=== PATIENT | male | born 1965 | race Caucasian/White ===

== ENCOUNTER 2019-11-18 00:47 | Inpatient (IN) | payer MEDICAID, OTHER ==
--- NOTE | 2019-11-18 02:01 | ED ---
Psych HPI - General Source: patient, police Mode of arrival: ambulatory <Sadie Ramirez - Last Filed: 11/18/19 08:20> <Silver Mcknight - Last Filed: 11/18/19 14:58> - General Chief Complaint: Psychiatric Symptoms Stated Complaint: petition Time Seen by Provider: 11/18/19 01:05 - History of Present Illness Initial Comments: Rides a 54-year-old gentleman is brought to the ER today by police for psychiatric evaluation. Patient was petitioned by his for delusional thinking. In addition patient's on expresses concern because he reports the patient's currently living in the home has no electricity or water. Patient reports that he is living in a farmhouse he has a generator he currently doesn't have sit electric due to a unpaid bill. He states that he has a well and he is able to pump water. He states that he is currently going through divorce from his of 33 years and that she had an petitioned to be vindictive and so that she can get into the house and take belongings. He denies any suicidal or homicidal thoughts. Denies any intent to kill himself. He does admit that he is lonely at the house living alone and does state that sometimes he tells his son that he needs to come home to take care of him. Patient does have a well-healing laceration to the right wrist which he reports he obtained while removing a window. He didn't seek care at the time of the laceration had sutures at [facility]. When we advised the patient that we had to take blood he became combative stating that he didn't want us to take blood he does not want blood test for drugs. 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 Patient reports he turned him in the place and he has been arrested. Patient states that he only uses drugs as he was working undercover. (Sadie Ramirez) - Related Data Home Medications Medication Instructions Recorded Confirmed No Known Home Medications 11/18/19 11/18/19 Allergies Allergy/AdvReac Type Severity Reaction Status Date / Time No Known Allergies Allergy Verified 11/18/19 08:07 Review of Systems ROS Other: All systems not noted in ROS Statement are negative. <Sadie Ramirez - Last Filed: 11/18/19 08:20> ROS Other: All systems not noted in ROS Statement are negative. <Silver Mcknight - Last Filed: 11/18/19 14:58> ROS Statement: Those systems with pertinent positive or pertinent negative responses have been documented in the HPI. Past Medical History Past Medical History: No Reported History History of Any Multi-Drug Resistant Organisms: None Reported Past Surgical History: No Surgical Hx Reported Additional Past Surgical History / Comment(s): 2012 colon resection surgery Past Psychological History: No Psychological Hx Reported Smoking Status: Current some day smoker Past Alcohol Use History: None Reported Past Drug Use History: None Reported <Sadie Ramirez - Last Filed: 11/18/19 08:20> General Exam Limitations: no limitations <Sadie Ramirez - Last Filed: 11/18/19 08:20> - General Exam Comments Initial Comments: Physical Exam GENERAL: Unkempt appearance, poor personal hygiene HENT: Normocephalic, Atraumatic. EYES: PERRL, EOMI PULMONARY: Unlabored respirations. CARDIOVASCULAR: RRR Warm and well perfused extremities ABDOMEN: Non-distended SKIN: Well-healing sutured laceration on the anterior surface of the right wrist : Deferred NEUROLOGIC: Alert and oriented Normal speech Normal gait MUSCULOSKELETAL: Moving all extremities with no apparent injury PSYCHIATRIC: No SI/HI (Sadie Ramirez) Course Vital Signs 11/18/19 11/18/19 11/18/19 00:58 07:00 08:00 Temperature 97.8 F 97.8 F Pulse Rate 84 85 Respiratory 16 18 18 Rate Blood Pressure 130/100 110/70 O2 Sat by Pulse 98 96 Oximetry 11/18/19 11/18/19 11/18/19 09:00 10:00 11:00 Temperature 97.6 F Pulse Rate 75 Respiratory 18 18 18 Rate Blood Pressure 138/80 O2 Sat by Pulse 98 Oximetry 11/18/19 11/18/19 12:00 13:00 Temperature Pulse Rate Respiratory 18 18 Rate Blood Pressure O2 Sat by Pulse Oximetry Medical Decision Making - Lab Data Result diagrams: 11/18/19 02:41 11/18/19 02:41 <Sadie Ramirez - Last Filed: 11/18/19 08:20> - Lab Data Result diagrams: 11/18/19 02:41 11/18/19 02:41 <Silver Mcknight - Last Filed: 11/18/19 14:58> - Medical Decision Making The patient was seen and evaluated history is obtained from patient and review of pick remover order The patient is medically cleared for evaluation by psychiatry Patient care is signed out to Dr. Mcknight who will follow-up on EPS recommendations (Sadie Ramirez) - Lab Data Lab Results 11/18/19 11/18/19 11/18/19 Range/Units 02:41 02:41 02:41 WBC 10.8 H (3.8-10.6) k/uL RBC 5.10 (4.30-5.90) m/uL Hgb 15.1 (13.0-17.5) gm/dL Hct 46.2 (39.0-53.0) % MCV 90.5 (80.0-100.0) fL MCH 29.5 (25.0-35.0) pg MCHC 32.6 (31.0-37.0) g/dL RDW 13.4 (11.5-15.5) % Plt Count 231 (150-450) k/uL Neutrophils % 66 % Lymphocytes % 21 % Monocytes % 7 % Eosinophils % 3 % Basophils % 1 % Neutrophils # 7.1 (1.3-7.7) k/uL Lymphocytes # 2.3 (1.0-4.8) k/uL Monocytes # 0.8 (0-1.0) k/uL Eosinophils # 0.3 (0-0.7) k/uL Basophils # 0.1 (0-0.2) k/uL Sodium 135 L (137-145) mmol/L Potassium 4.0 (3.5-5.1) mmol/L Chloride 103 (98-107) mmol/L Carbon Dioxide 24 (22-30) mmol/L Anion Gap 8 mmol/L BUN 19 (9-20) mg/dL Creatinine 0.72 (0.66-1.25) mg/dL Est GFR (CKD-EPI)AfAm >90 (>60 ml/min/1.73 sqM) Est GFR (CKD-EPI)NonAf >90 (>60 ml/min/1.73 sqM) Glucose 101 H (74-99) mg/dL Calcium 9.4 (8.4-10.2) mg/dL Total Bilirubin 0.8 (0.2-1.3) mg/dL AST 29 (17-59) U/L ALT 16 (4-49) U/L Alkaline Phosphatase 87 (38-126) U/L Total Protein 6.7 (6.3-8.2) g/dL Albumin 4.2 (3.5-5.0) g/dL Urine Color Yellow Urine Appearance Clear (Clear) Urine pH 6.0 (5.0-8.0) Ur Specific [place] 1.028 (1.001-1.035) Urine Protein Trace H (Negative) Urine Glucose (UA) Negative (Negative) Urine Ketones 1+ H (Negative) Urine Blood Negative (Negative) Urine Nitrite Negative (Negative) Urine Bilirubin Negative (Negative) Urine Urobilinogen 3.0 (<2.0) mg/dL Ur Leukocyte Esterase Small H (Negative) Urine RBC 1 (0-5) /hpf Urine WBC 5 (0-5) /hpf Ur Squamous Epith Cells <1 (0-4) /hpf Urine Mucus Many H (None) /hpf Salicylates <1.0 mg/dL Urine Opiates Screen Not Detected (NotDetected) Ur Oxycodone Screen Not Detected (NotDetected) Urine Methadone Screen Not Detected (NotDetected) Ur Propoxyphene Screen Not Detected (NotDetected) Acetaminophen <10.0 ug/mL Ur Barbiturates Screen Not Detected (NotDetected) U Tricyclic Antidepress Not Detected (NotDetected) Ur Phencyclidine Scrn Not Detected (NotDetected) Ur Amphetamines Screen Detected H (NotDetected) U Methamphetamines Scrn Detected H (NotDetected) U Benzodiazepines Scrn Not Detected (NotDetected) Urine Cocaine Screen Detected H (NotDetected) U Marijuana (THC) Screen Detected H (NotDetected) Serum Alcohol <10 mg/dL Disposition <Sadie Ramirez - Last Filed: 11/18/19 08:20> Time of Disposition: 14:58 <Silver Mcknight - Last Filed: 11/18/19 14:58> Clinical Impression: Psychosis Disposition: TRANSFER TO PSYCH HOSP/UNIT Referrals: None,Stated [Primary Care Provider] - 1-2 days
[2019-11-18 02:50] LABS: Basophils # (A) 0.1 k/uL (0-0.2); Basophils % (A) 1 %; Eosinophils # (A) 0.3 k/uL (0-0.7); Eosinophils % (A) 3 %; HCT 46.2 % (39.0-53.0); HGB 15.1 gm/dL (13.0-17.5); Lymphocytes # (A) 2.3 k/uL (1.0-4.8); Lymphocytes % (A) 21 %; MCH 29.5 pg (25.0-35.0); MCHC 32.6 g/dL (31.0-37.0); MCV 90.5 fL (80.0-100.0); Mean Platelet Volume 8.8; Monocytes # (A) 0.8 k/uL (0-1.0); Monocytes % (A) 7 %; Neutrophils # (A) 7.1 k/uL (1.3-7.7); Neutrophils % (A) 66 %; Platelet Count 231 k/uL (150-450); RDW 13.4 % (11.5-15.5); WBC 10.8 k/uL (3.8-10.6)
[2019-11-18 02:52] LABS: Appearance,Urine Clear (Clear); Bilirubin,Urine Negative (Negative); Blood,Urine Negative (Negative); Color,Urine Yellow; Glucose,Urine (UA) Negative (Negative); Ketones,Urine 1+ (Negative); Leukocyte Esterase,Urine Small (Negative); Mucus,Urine Many /hpf; Nitrite,Urine Negative (Negative); Protein,Urine Trace (Negative); RBC,Urine 1 /hpf (0-5); Specific Gravity,Urine 1.028 (1.001-1.035); Squamous Epithelial Cell,Urine <1 /hpf (0-4); WBC,Urine 5 /hpf (0-5)
[2019-11-18 02:58] LABS: ALT 16 U/L (4-49); AST 29 U/L (17-59); Acetaminophen <10.0 ug/mL; African American GFR (CKD) >90 (>60 ml/min/1.73 sqM); Albumin 4.2 g/dL (3.5-5.0); Alcohol <10 mg/dL; Alkaline Phosphatase 87 U/L (38-126); Anion Gap 8 mmol/L; Blood Urea Nitrogen 19 mg/dL (9-20); Calcium 9.4 mg/dL (8.4-10.2); Carbon Dioxide 24 mmol/L (22-30); Chloride 103 mmol/L (98-107); Glucose 101 mg/dL (74-99); Non-African American GFR(CKD) >90 (>60 ml/min/1.73 sqM); Salicylate <1.0 mg/dL; Sodium 135 mmol/L (137-145); Total Bilirubin 0.8 mg/dL (0.2-1.3); Total Protein 6.7 g/dL (6.3-8.2)
[2019-11-18 02:59] LABS: Amphetamine Screen,Urine Detected (NotDetected); Barbiturate Screen,Urine Not Detected (NotDetected); Benzodiazepines Screen,Urine Not Detected (NotDetected); Cocaine Screen,Urine Detected (NotDetected); Methadone Screen, Urine Not Detected (NotDetected); Opiate Screen,Urine Not Detected (NotDetected); Oxycodone Screen, Urine Not Detected (NotDetected); Phencyclidine Screen,Urine Not Detected (NotDetected); Tricyclic Antidepressant,Urine Not Detected (NotDetected); Urn Cannabinoid Scrn Detected (NotDetected)
[2019-11-18] MEDS ORDERED: LORazepam 2 MG/ML INJ IM STA (16:43)
[2019-11-18] MEDS ORDERED: ZIPRASIDONE 20 MG VIAL IM PRN (16:57)
[2019-11-18] MEDS ORDERED: MAG HYDROX/AL HYDROX/SIMETH 30 ML CUP PO PRN (16:57)
[2019-11-18] MEDS ORDERED: MAGNESIUM HYDROXIDE 2,400 MG/10 ML CUP PO PRN (16:57)
[2019-11-18] MEDS ORDERED: ACETAMINOPHEN TAB 325 MG TAB PO PRN (16:57)
[2019-11-18] MEDS ORDERED: LORazepam 1 MG TAB PO PRN (16:57)
[2019-11-18] MEDS ORDERED: LORazepam 2 MG/ML INJ IM PRN (17:06)
[2019-11-18] MEDS ORDERED: ZIPRASIDONE 20 MG VIAL IM STA (17:07)
[2019-11-18] MEDS: NICOTINE 14MG/24HR PATCH TRANSDERM SCH (20:03)
[2019-11-18] MEDS ORDERED: HALOPERIDOL LACTATE 5 MG/ML 1 ML VIAL IM STA (22:57)
[2019-11-19] MEDS: NICOTINE 14MG/24HR PATCH TRANSDERM SCH (11:36)
--- NOTE | 2019-11-19 14:14 | HP ---
HISTORY AND PHYSICAL DATE OF ADMISSION: 11/18/2019 DATE OF EVALUATION: 11/19/2019 . HISTORY OF PRESENT ILLNESS: The patient is 54, male who is currently from his of 33 years, was brought to the emergency room by the police on court order. The patient was petitioned by his for delusional thinking. According to the petition, she stated that the patient told her that there is a demon coming in the window to steal his body. In addition, he stated that there are faces in the tree. She stated that he does not have electricity or water or food in the house. The patient was severely agitated. He denied any of this allegation. He stated that the one who was seeing demon in the window it was her uncle who was in the psych unit. Also, he denied that he did cut his wrist. He stated "I was fixing the window last week and the glass slashed my wrist , did not slit my wrist, she is lying." Patient kept asking me "HOW CAN I GET OUT OF THIS PLACE" He stated that he does not belong to "THIS NUT HOUSE". He kept saying that I have electricity because I have a generator. According to him, he is currently going through a divorce from his of 33 years and she did petition him to be vindictive so she can go back to the house and take all the belongings. The patient was very grandiose, he kept telling me "I am a very rich man. I have a limousine and have Corvette and she want to steal all this" Then he was very bizarre when I did ask him if he was using methamphetamine. He said "She is the one who is addicted to methamphetamine, but I was trying to go around the people that she associated with and I did use with them, so I could report them to the police." The patient was severely agitated and combative in the emergency room, especially when they did ask him to do blood work up. This morning he was severely agitated and he was asking to be discharged. He said "I will not stay in this place more than 72 hours." He stated that he will not take any psychotropic medication and he does not want any injection. Last night patient received IM 5 mg Haldol and 2 mg Ativan due to agitation PAST PSYCHIATRIC HISTORY: He denied inpatient or outpatient treatment. FAMILY HISTORY OF ILLNESS: He stated that his mother was addicted to opiate and benzodiazepine. No one committed suicide in the family. ALLERGIES: There is no drug allergies. HOME MEDICATION: There is no known home medication. PAST MEDICAL HISTORY: There is history in 2011 of colon resection surgery. This is according to the record, but the patient refused to answer this. LAB WORKUP: His urine drug screen was positive for cocaine, methamphetamine, amphetamine and marijuana. Urinalysis, there is small amount of leukocyte esterase. Vital signs: Temperature 97.6, pulse 75, respiration 18, blood pressure 138/80. SUBSTANCE ABUSE HISTORY: 1. Patient was very vague, guarded and very defensive regarding his substance abuse history. He stated that he is using methamphetamine and amphetamine. However, he denied using cocaine. He said "most probably someone just mixed it with my methamphetamine. ". 2. Cannabis. He has been smoking marijuana on a regular basis. The patient denied any rehab program. BRIEF SOCIAL HISTORY: The patient was born and raised in [place], he dropped out of school at 10th grade. He stated "I did not like school and I supposed to work because my family was not rich." He has been for 33 years and he has 2 sons, age 28 and 22. He said he is very close to the oldest one. The patient stated that he has 4 sisters and 3 brothers. 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 He denied any current legal problem and he is not on probation. MENTAL STATUS EXAMINATION: Patient appears to be much older than stated age. He is very agitated, irritable, wearing hospital gown. Hygiene and grooming are impaired. The patient could not sit for long periods of time as he gets severely agitated as he was reading the petition filed by his . His speech was increased in productivity, pressured. There is loose of association. His stated mood "I am angry and frustrated because I want to leave right now." Affect is irritable. He denied any suicidal, homicidal ideation, intent, or plan. He denied any auditory hallucination, but it seems that he is very paranoid, suspicious and projecting everything on his . Regarding memory and concentration, I could not pursue this as the patient was severely agitated and he was not cooperative during the interview. His insight and judgment are totally impaired. INTELLECTUAL FUNCTION: Average. STRENGTHS AND WEAKNESSES: Strengths: He is having stable job, housing and supportive children. WEAKNESS: His drug addiction and poor judgment and impulsivity. DIAGNOSES: 1. Psychosis, NOS. Methamphetamine use disorder, substance induced psychosis. 2. Polysubstance use disorder, cocaine, methamphetamine and cannabis use disorder. PLAN: The patient was admitted under involuntary status for stabilization of his psychiatric symptoms and safety. His second certificate was completed and it will be filed with the petition for the court. The patient will be on p.r.n. medication for agitation until the probate court hearing. The patient will participate in group therapy. Activity therapy as tolerated. Our geriatric social worker on board for collateral information from his and for post plan discharge. MMODL / IJN: [id number] / MTDD
--- NOTE | 2019-11-19 22:13 | P.PN ---
Progress Note - Text Progress Note Date: 11/19/19 Attempted to see the patient in the mental health unit. The patient refused to answer questions or be examined. Will attempt tomorrow.
--- NOTE | 2019-11-20 08:46 | P.PN ---
Progress Note - Text Progress Note Date: 11/20/19 Attempted to see the patient again on 11/19. The patient refused to talk, answer any questions, or be seen.
--- NOTE | 2019-11-20 09:27 | P.PN ---
Progress Note - Text Progress Note Date: 11/20/19 Clinical Problems: Psychosis NOS , polysubstance use disorder ,substance induced psychosis Patient refused to see medical doctor yesterday and today Slept 5 hours ,no participation in groups ,withdrawn ,poor ADL TODAY VITALS:Temp:98.7,P:72,R:18,BP:122/70 Interim history: I reviewed the medical record and attempted to interview the patient. He refused to get out of bed for the interview. He would not answer questions and did not volunteer information. He kept requesting to be discharged"I do not belong here ,I am missing my son " He avoids social contact, does not participate in therapeutic groups and activities and seldom interacts with staff or peers. Mental status exam: He presented as a disheveled male who is laying in bed. He would not make eye contact. His speech was non spontaneous but coherent ,irritable , He appeared guarded and suspicious. He did not appear to be responding to internal stimuli.His insight and judgment are limited Plan: Continue inpatient. Probate hearing pending. Ativan 1 mg by mouth 3 times a day when necessary for agitation or anxiety and Geodon 20 mg IM twice a day for agitation acute psychosis. Encourage participation in therapeutic groups and activities. Evaluate clinical status and response to treatment daily basis.
[2019-11-20] MEDS: NICOTINE 14MG/24HR PATCH TRANSDERM SCH (09:36)
--- NOTE | 2019-11-20 16:55 | P.HPIM ---
History of Present Illness H&P Date: 11/20/19 Chief Complaint: acute psychosis this is a 54-year-old male who presents to the emergency department accompanied seen by police for psychiatric evaluation. Patient was petitioned by his secondary to delusional thinking. Patient states that his is trying to take away all his money and things. Patient is also concerned about his right wrist laceration with stasis. Patient has had stitches there for the past 12 days. They are due to come out. Patient states he injured himself when he broke a window. patient denies chest pain, shortness of breath, nausea, vomiting, fever, or chills Review of Systems a 14 point review of systems was assessed patient was only positive for those pertinent HPI Past Medical History Past Medical History: No Reported History History of Any Multi-Drug Resistant Organisms: None Reported Past Surgical History: No Surgical Hx Reported Additional Past Surgical History / Comment(s): 2011 colon resection surgery Past Psychological History: No Psychological Hx Reported Smoking Status: Current some day smoker Past Alcohol Use History: None Reported Past Drug Use History: None Reported Medications and Allergies Home Medications Medication Instructions Recorded Confirmed Type No Known Home Medications 11/18/19 11/18/19 History Allergies Allergy/AdvReac Type Severity Reaction Status Date / Time No Known Allergies Allergy Verified 11/18/19 08:07 Physical Exam Osteopathic Statement: *. No significant issues noted on an osteopathic structural exam other than those noted in the History and Physical/Consult. General: [non toxic], [no distress], [appears at stated age] Derm: [warm], [dry] Head: [atraumatic], [normocephalic], [symmetric] Eyes: [EOMI], [no lid lag], [anicteric sclera] Mouth: [no lip lesion], [mucus membranes moist] Cardiovascular: [S1S2 reg], [no murmur], [positive posterior tibial pulse bilateral], Lungs: [CTA bilateral], [no rhonchi, no rales] , [no accessory muscle use] Abdominal: [soft], [ nontender to palpation], [no guarding], [no appreciable organomegaly] Ext: [no gross muscle atrophy], [no edema], [no contractures]right wrist laceration healing with stitches with increased erythema and edema around stitches Neuro: [ CN II-XI grossly intact], [no focal neuro deficits] Psych: [Alert], [oriented], [appropriate affect] Results CBC & Chem 7: 11/18/19 02:41 11/18/19 02:41 Assessment and Plan Assessment: 1. Right wrist laceration with stitches -Nursing staff advised to remove the stitches -Bactrim prescribed for possible cellulitis 2. Acute psychosis Psychiatry recommendations appreciated Time with Patient: Greater than 30
[2019-11-20] MEDS: SULFAMETHOX-TMP 800-160MG 1 EACH TAB PO SCH (21:13)
[2019-11-21 03:32] VITALS: BP 113/71; PULSE 83; RESP 16; TEMP 97.9
[2019-11-21] MEDS: NICOTINE 14MG/24HR PATCH TRANSDERM SCH (09:42)
[2019-11-21] MEDS: SULFAMETHOX-TMP 800-160MG 1 EACH TAB PO SCH (09:43)
[2019-11-21] MEDS ORDERED: DOXYCYCLINE 100 MG CAP PO SCH (10:30)
[2019-11-21 13:00] VITALS: BMI 23.7
[2019-11-21] MEDS ORDERED: CEPHALEXIN 500 MG CAP PO SCH (16:00)
--- NOTE | 2019-11-21 20:43 | DS ---
DISCHARGE SUMMARY DATE OF ADMISSION: 11/18/2019 DATE OF DISCHARGE: 11/21/2019 HOSPICE RN: [place] D.O., for H&P and medical management. DISCHARGE DIAGNOSES: 1. Substance-induced psychosis, resolved. 2. Methamphetamine use disorder. 3. Cocaine use disorder. HISTORY OF PRESENT ILLNESS: The patient is a 54-year-old male who was brought to the emergency room by the police on court order. He was petitioned by his for delusional thinking. His urine drug screen was positive for methamphetamine, amphetamine and cocaine. Please refer to my complete history and physical dictated on November 18. HOSPITAL COURSE: The first day, patient was very agitated and irritable, stated that his petitioned him here so she could take all his money. He even refused H&P. However, after 24 hours the patient calmed down and was able to understand that he was here until he would meet with an assistant prosecuting attorney for deferral meeting. He was just on p.r.n. medication until he was cleared within 24 hours. The patient was not participating in any group. However, he was trying to call his son to check on his house and his belongings. Initially he was minimizing his addiction and drug use, but after one day his insight into his addiction was improving and he did agree to start inpatient substance abuse. He even called for intake and we did confirm that he has an appointment at [facility] on November 24 at 12:00. Our clinical social work aide did contact the patient's son, Pelon, who stated that he does believe that his dad does not need any mental health, but he believes that his dad needs rehab for the cocaine and methamphetamine use. His son Pelon did agree to cook pickled meat his dad after the deferral meeting today. Regarding his labs, the only abnormality was his urinalysis that was positive for leukocyte esterase, and that is why he was started on antibiotic to continue for another 7 days. MENTAL STATUS EXAMINATION: At the time of the discharge, the patient was wearing a hospital gown, not shaved. He had marginal hygiene and grooming. He was cooperative, very easy to redirect. Speech was coherent and goal-directed. He denied any psychotic feature. He denied any visual or auditory hallucination. He denied any suicidal or homicidal ideation. His insight and judgment regarding his addiction was improved. DISCHARGE DIAGNOSES: 1. Polysubstance use disorder, cocaine and methamphetamine. 2. Substance-induced psychosis, resolved. PLAN: The patient was discharged to start inpatient rehab on November 24 for his cocaine and methamphetamine. [id number] / IJN: [id number] /
== END 2019-11-21 15:04 | disposition home or self-care (01) | DRG 897 ==
LOC: EC 00:47 → 3MHU 16:47
PROVIDERS: ADMIT Psychiatry & Neurology Psychiatry; ATTEND Psychiatry & Neurology Psychiatry
DX: F15.259 Other stimulant dependence with stimulant-induced psychotic disorder, unspecified (principal); F14.159 Cocaine abuse with cocaine-induced psychotic disorder, unspecified; F12.10 Cannabis abuse, uncomplicated; S61.511D Laceration without foreign body of right wrist, subsequent encounter; F17.200 Nicotine dependence, unspecified, uncomplicated; Z71.6 Tobacco abuse counseling; Z90.49 Acquired absence of other specified parts of digestive tract; Z87.19 Personal history of other diseases of the digestive system; Z98.890 Other specified postprocedural states; Z81.4 Family history of other substance abuse and dependence
CPT/HCPCS: 36415; 80053; 80306; 80320; 80329; 81001; 82075; 83520; 85025; 96372; 99285

== ENCOUNTER 2019-12-11 21:56 | Inpatient (IN) | payer MEDICAID, OTHER ==
[2019-12-11] MEDS ORDERED: LORazepam 2 MG/ML INJ IV STA (23:17)
[2019-12-11] MEDS ORDERED: LORazepam 2 MG/ML INJ IM STA (23:21)
--- NOTE | 2019-12-12 00:02 | ED ---
Psych HPI - General Chief Complaint: Psychiatric Symptoms Stated Complaint: mental health Time Seen by Provider: 12/11/19 22:16 Source: patient, EMS Mode of arrival: ambulatory - History of Present Illness Initial Comments: Patient is a 54-year-old male presenting to the emergency department for psychiatric evaluation. Police state patient was picked up on petition order for not complying with his treatment through [facility]. Patient denies any suicidal thoughts at this time. supervisory cbp officer states during transfer to ER, patient was banging his head against the cage resulting in a small laceration on his forehead. He is very agitated and not cooperative at this time. He is not answering many questions. He denies having pain anywhere. He denies any nausea or vomiting, fevers. He denies any drug use at this time. Upon arrival to the ER his vitals are stable. - Related Data Home Medications Medication Instructions Recorded Confirmed No Known Home Medications 12/11/19 12/11/19 Allergies Allergy/AdvReac Type Severity Reaction Status Date / Time Sulfa (Sulfonamide AdvReac Rash/Hives Verified 12/11/19 22:50 Antibiotics) Review of Systems ROS Statement: Those systems with pertinent positive or pertinent negative responses have been documented in the HPI. ROS Other: All systems not noted in ROS Statement are negative. Past Medical History Past Medical History: No Reported History History of Any Multi-Drug Resistant Organisms: None Reported Past Surgical History: No Surgical Hx Reported Additional Past Surgical History / Comment(s): 2012 colon resection surgery Past Psychological History: No Psychological Hx Reported Smoking Status: Current some day smoker Past Alcohol Use History: None Reported Past Drug Use History: None Reported General Exam - General Exam Comments Initial Comments: GENERAL: Patient is agitated, not cooperative, not in acute distress. HEAD: Normocephalic. Patient has small laceration to middle forehead. EYES: Pupils equal round and reactive to light, extraocular movements intact, sclera anicteric, conjunctiva are normal. Eyelids were unremarkable. ENT: TMs normal, nares patent, oropharynx clear without exudates. Moist mucous membranes. NECK: Normal range of motion, supple without lymphadenopathy or JVD. LUNGS: Unlabored respirations. Breath sounds clear to auscultation bilaterally and equal. No wheezes rales or rhonchi. HEART: Regular rate and rhythm without murmurs, rubs or gallops. ABDOMEN: Soft, nontender, normoactive bowel sounds. No guarding, no rebound. No masses appreciated. : Deferred MUSCULOSKELETAL: Normal extremities with adequate strength and normal range of motion, no pitting or edema. No clubbing or cyanosis. NEUROLOGICAL: Patient is alert and oriented x 3. Motor and sensory are also intact. Cranial nerves II through XII grossly intact. Symmetrical smile. Normal speech, normal gait. PSYCH: Patient is agitated, not cooperative. SKIN: Warm, Dry, normal turgor, no rashes. Patient has a 1 cm horizontal laceration to the middle of the forehead. There is no active bleeding. Patient is refusing sutures. Limitations: no limitations Course Vital Signs 12/11/19 12/12/19 12/12/19 22:03 04:10 05:36 Temperature 98.8 F Pulse Rate 59 L 75 65 Respiratory 20 16 16 Rate Blood Pressure 159/86 90/58 98/56 O2 Sat by Pulse 96 96 97 Oximetry 12/12/19 07:00 Temperature Pulse Rate 62 Respiratory 16 Rate Blood Pressure 92/62 O2 Sat by Pulse 98 Oximetry Procedures - Laceration Laceration #1 Consent Obtained: verbal consent Indication: laceration Site: face (Forehead) Size (cm): 1 Description: linear Depth: simple, single layer Additional Comments: Patient refuses sutures, wound was cleaned, closed with Steri-Strips and a bandage. No active bleeding. Wound approximates well. Medical Decision Making - Medical Decision Making Patient is a 54-year-old male here for a gastric evaluation after failing to comply with this treatment plan. He denies any suicidal or homicidal thoughts at this time. Patient was hitting his head on the police car cage resulting in a 1 cm laceration to the middle of his forehead. Patient is refusing sutures. I did clean the wound, closed with Steri-Strips and a bandage. Patient was e valuated by psych. Patient will be admitted. Disposition Clinical Impression: Suicidal ideation Disposition: ADMITTED IP TO THIS HOSP
[2019-12-12] MEDS ORDERED: ZIPRASIDONE 20 MG VIAL IM STA (03:24)
[2019-12-12] MEDS ORDERED: LORazepam 2 MG/ML INJ IM STA (04:12)
[2019-12-12] MEDS ORDERED: ACETAMINOPHEN TAB 325 MG TAB PO PRN (07:26)
[2019-12-12] MEDS ORDERED: MAG HYDROX/AL HYDROX/SIMETH 30 ML CUP PO PRN (07:26)
[2019-12-12] MEDS ORDERED: MAGNESIUM HYDROXIDE 2,400 MG/10 ML CUP PO PRN (07:26)
[2019-12-12] MEDS ORDERED: OLANZapine 10 MG TAB PO PRN (07:33)
[2019-12-12] MEDS: OLANZapine 10 MG VIAL IM PRN (12:39)
--- NOTE | 2019-12-12 12:44 | HP ---
HISTORY AND PHYSICAL HISTORY OF PRESENT ILLNESS: The patient is a 54, male, who was recently discharged from [facility] on November 20 with recommendation to follow up with substance abuse rehab and he did have an appointment as the [facility] on November 24. The patient has extensive history of substance abuse and poor compliance with followup. Patient was very resistant to talk to me, even he start calling me names and he stated that I have to leave the room or he will hurt someone. All the information was given from his medical record. The patient was brought to the ER on demand followed by [facility] for poor compliance of his defer treatment order. Patient did sign deferral on November 20 during his short short-term hospitalization on . At that time, he was presented with substance induced psychosis. As I mentioned, he was uncooperative with that initial evaluation and even it seems to me that he was very resistant in the ER and even in the police car as he did hit his head against the cage wall. There is a petition that was completed by the middle school librarian state that Hero stated that if he had to go into the hospital again, he would shoot himself. Patient was very resistant with the middle school librarian, even as I said he slammed his head against the gate of the patrol car and he did refuse suture when he came to the ER. Patient was noncooperative, very belligerent. very bizarre, yelling, calling me names and does not have any insight. The patient refused to give us urine to do urine drug screen on him. Regarding his past psychiatric history, the patient had one inpatient hospitalization here for 3 days in November and he was on court order with petition by his , saying that the patient is delusional thinking, that there is a demon coming from in the window and stealing his body. This is the previous admission. He was referred to [facility] on November 24, but he did not follow through. FAMILY PSYCHIATRIC HISTORY: His mother is addicted to opiate and benzodiazepine. MEDICAL HISTORY: There is no acute medical problem. ALLERGIES: There is no drug allergy. SUBSTANCE ABUSE HISTORY: The patient is vague and guarded and he did not want to answer if he did relapse on the methamphetamine or not and he refused to give urine for drug screen. From the previous record, the patient has been smoking marijuana on daily basis. He never had been in any rehab program. BRIEF SOCIAL HISTORY: Patient was born and raised in [place]. He dropped out of school at tenth grade. He has been for 33 years and he has 2 grown-up sons. At the time of his previous admission, he stated that he is going through divorce and he claims that his is trying to put him in to take all his money. 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 MENTAL STATUS EXAMINATION: The patient is much older than stated age. Very agitated, irritable, poor hygiene and he refused to talk to me and even he did try to threaten me that he will hurt me if I keep talking to him. His voice is very loud with yelling, calling, and swearing. The patient seemed does not have any insight and he is not cooperative with the interview. Complete mental status, I could not perform a complete mental status due to his behavior. DIAGNOSES: 1. Psychosis, NOS. Methamphetamine use disorder, substance induced psychosis. 2. Polysubstance use disorder, cocaine, methamphetamine and cannabis. PLAN: The patient is under deferral treatment. Will be admitted for stabilization of his psychiatric symptoms and safety. I will put him on p.r.n. medication for agitation as he is refusing Zyprexa. Our 7th grade social studies teacher onboard for collateral information and for post-discharge plan to substance abuse rehab. Prognosis guarded. MMJEREMYL / LUKEN: [id number] / LUCRETIA
--- NOTE | 2019-12-12 18:40 | P.PN ---
Progress Note - Text Progress Note Date: 12/12/19 Patient is sedated and unwilling to wake up or answer questions. He will be seen at a later time.
--- NOTE | 2019-12-13 09:42 | P.HP ---
Psychiatric H&P - . H&P Date: 12/13/19 History & Physical: Allergies Allergy/AdvReac Type Severity Reaction Status Date / Time Sulfa (Sulfonamide AdvReac Rash/Hives Verified 12/11/19 22:50 Antibiotics) Vital Signs Temp 98.0 F 12/12/19 09:17 Pulse 69 12/12/19 09:17 Resp 16 12/12/19 09:17 BP 122/60 12/12/19 09:17 Pulse Ox 98 12/12/19 09:17 12/13/19 08:37 Past psychiatric history: The patient was admitted to our psychiatric unit on 11/18/2019 and discharged on 11/20. At that time the patient was petitioned by is due to delusional thinking. He was readmitted on 12/10 due to noncompliance with his treatment through [facility]. He was brought to the hospital by the police and he was banging his head against the cage lacerating his forehead his mood fluctuates and on the unit he became agitated and punched a picture on the wall and required as needed Geodon. Labs: Hematology showed a slight increase in white count not thought to be an acute problem General chemistry was normal Urinalysis showed 1+ ketones so he is probably not been eating Toxicology showed amphetamines methamphetamines cocaine and marijuana Mental status exam: The patient was alert lying motionless in his hospital bed as soon as I came in and sat down to talk to him he said, "go Fuck yourself, why don't you eat shit, you are the dumbest person on the planet, you had better get out or else." Assessment: The patient is not doing well he is getting when necessary medicines but will probably need a monthly injection medication if if he is going to do well after discharge. 12/13/19 09:34
[2019-12-13] MEDS: OLANZapine 10 MG VIAL IM PRN (11:14)
[2019-12-13] MEDS ORDERED: diphenhydrAMINE 50 MG/ML 1 ML VIAL IM STA (11:29)
[2019-12-13] MEDS ORDERED: diphenhydrAMINE 50 MG/ML 1 ML VIAL IVP STA (11:29)
--- NOTE | 2019-12-13 15:34 | P.PN ---
Progress Note - Text Progress Note Date: 12/13/19 Patient refused to be seen. Please call sound physicians if patient is willing to be seen at a later date.
[2019-12-13] MEDS: LORazepam 2 MG/ML INJ IM PRN ×2 (18:24→18:55)
[2019-12-13] MEDS: ZIPRASIDONE 20 MG VIAL IM PRN ×2 (18:24→18:56)
[2019-12-14] MEDS ORDERED: ZIPRASIDONE 20 MG VIAL IM ONE (11:24)
[2019-12-14] MEDS ORDERED: WATER FOR INJECTION, STERILE 10 ML IV ONE (11:25)
[2019-12-14] MEDS: ZIPRASIDONE 20 MG VIAL IM PRN ×2 (11:31→19:08)
[2019-12-14] MEDS: LORazepam 2 MG/ML INJ IM PRN ×2 (11:31→19:08)
[2019-12-14] MEDS ORDERED: LORazepam 1 MG TAB PO STA (15:18)
[2019-12-14] MEDS ORDERED: ZIPRASIDONE 60 MG CAP PO STA (15:18)
--- NOTE | 2019-12-14 15:19 | P.PN ---
Subjective Progress Note Date: 12/14/19 Principal diagnosis: Diagnosis psychosis NOS Polysubstance use disorder including cocaine and methamphetamine and cannabis Subjective: "I was in here and I talked and talked and they still would not labs me out and then once I got out they brought me back in, so was the point of talking?" He then proceeded to norris and delphine. He had been lying quietly in bed but my talking to him stirred him up and he basically asked for more medicine that'll help calm himself down so we gave him by mouth 60 of Geodon and 2 of Ativan. He did threaten to kill somebody is somebody do something to calm down Objective: No eye contact poor self-care lying in his bed trying to stay calm by ignoring everybody and everything she talked with me a lot more than yesterday and I told her to step in the right direction which seemed to just make him more angry. Patient is not going to groups Staff assessment is that he is angry and labile demanding withdrawn hard to assess for suicidality or homicidality his he does not talk much Assessment patient definitely a danger to self or others. On the one hand he refuses medicine although the hand he demands it so hopefully in the near future we can get him on some regular medication that prevents the rage the when necessary as he had some slurred that overall he seems calmer Objective - Vital Signs Vital signs: Vital Signs Temp 97.8 F 12/13/19 14:35 Pulse 89 12/13/19 14:35 Resp 20 12/13/19 14:35 BP 134/79 12/13/19 14:35 Pulse Ox 98 12/13/19 14:35
--- NOTE | 2019-12-14 22:06 | P.MHFACE ---
Face to Face Restrain/Seclus - Evaluation Patient's Immediate Situation: Endangers self safety, Endangers others' safety Patient's Reaction to the Intervention: Appropriate, Calm Patient's Medical & Behavioral Condition: Awake, Alert Need to Continue or Terminate Restraint or Seclusion: Continue Need to Continue or Terminate Restraint/Seclusion - Comment: Notified by the staff that the patient had collected metal which was found in his bed. The patient was also threatening staff and other patients. He was seen at the bedside at 7:20 pm. Patient was calm. Discussed with the patient the need for cooperation in discontinuation of the restraints. Advised the staff to discontinue the restraints as soon as the patient is more directable and no longer a threat to self or others. Continue with the restraints for now.
--- NOTE | 2019-12-15 10:26 | P.PN ---
Progress Note - Text Progress Note Date: 12/15/19 I reviewed medical records ,did interview patient and case was discussed in treatment team 12/14/19 19:10 - Nurse Note by Tamika Katz [facility] Num: [id number] : 1965 Patient Age: 54 approx 1850 pt was placed in restraints r/t threatening, spitting, hitting kicking. pt refused to move to quiet room from his room as requested. pt was being moved r/t damaging room wall, ripping his sheet and mattress. pt unpredictable. spit mask placed on patient related to spitting on multiple staff. pt given IM geodon and ativan. attempted to review restraint release measures, pt screaming over this filing writer. unable to speak with pt at this time. Dr. Osei notified of need for face to face 1900 Patient continues to pick at wall, has now ripped sheets and a hole in bedding. Nursing ask patient to get up and move to quiet room so we could have patient on monitor. Patient would not move and kept stating just let me out. Security was called. Patient refused to move. Security came and picked up patient to take to Quiet Room. Patient was fighting and threatening to kill staff. Kept saying he would remember all staff, come after them and kill their kids. Patient was biting security and spitting on staff. Patient was put in restraints. Patient continued to bite and spit. spit mask was put on patient face. patient left in restraints. IM's given. Patient currently not cooperative trying to get out of restraints. Dr Landaverde called. Sound contacted for face to face INTERVAL : patient was seen in quiet room with security at his bedside ,stated that he wants to stay here and does not want to go to any rehab "I was doing drugs with my but now she is not home and we are ",patient was irritable but easy to redirect ,stated that his estranged took his money and his son left home "I do not want to go to empty home",stated that he did not relapse on illicit drugs but he refused to give his Urine for UDS Mental status exam: Patient was wearing his own cloth ,hygiene and grooming are poor ,unkept disheveled ,denies any hallucination,grandiose delusion ,hyperverbal ,increased productivity ,loose of association, alert to person and place ,denies any suicidal or homicidal ideation ,very concrete in his thinking insight and judgment are impaired ASSESSMENT :Bipolar disorder ,manic with psychotic features, polysubstance use disorder PLAN: Patient continues to meet criteria for inpatient psychiatric admission for symptom stabilization and safety ,start Abilify 15 mg oral and will transition to long acting injection .PRN Ativan and Geodon for agitation , ,encourage participation in group,SW on board for post-discharge plan
[2019-12-15] MEDS: ZIPRASIDONE 20 MG VIAL IM PRN ×2 (12:03→18:36)
[2019-12-15] MEDS: LORazepam 2 MG/ML INJ IM PRN ×2 (12:03→18:36)
[2019-12-16] MEDS: ZIPRASIDONE 20 MG VIAL IM PRN (06:18)
[2019-12-16] MEDS: LORazepam 2 MG/ML INJ IM PRN (06:18)
[2019-12-16] MEDS ORDERED: ARIPiprazole 15 MG TAB PO SCH (09:00)
--- NOTE | 2019-12-16 10:23 | P.PN ---
Progress Note - Text Progress Note Date: 12/16/19 I reviewed medical records ,did interview patient and case was discussed in treatment team 12/16/19 06:18 - Nurse Note by Cata Haque Acct Num: [id number] : 1965 Patient Age: 54 Patient woke up very irritable and angry stating if you dont give me medication, "I am going to freak the fuck out" repeating the statement multiple times. Patient does not wish to discuss what the issue is just simply repeating the phrase. IM ativan 2 mg IM and geodon and 20 mg IM given. Patient will continue with security 1:1 at this time. 12/15/19 12:00 (created 12/15/19 16:55) - Nurse Note by Sanjana Vilchis Acct Num: [id number] : 1965 Patient Age: 54 Pt was given Geodon 20mg IM and Ativan 2mg Im at this time, he is yelling loudly in his room, he states "give me my damn drugs" He is screaming and agitated, he reports "You can get this guard off of me!" "I did not do anything" It was explained to the patient that his behavior needs to be under control so that we can take him off of the Security one to one. He continues to threaten verbally during this one to one, he states "Just give me everything you can to put me out of my misery." He is cooperative with IM and remains on the one to one for staffing. Initialized on 12/15/19 16:55 - END OF NOTE INTERVAL : patient was seen in quiet room with security at his bedside ,stated that "I WANT TO GET OUT OF HERE I AM GOING TO [place] I HAVE NEW GIRL FRIEND",I tried to discuss with him to start scheduled meds instead of PRN ,he replied "YOU JUST LEAVE ALONE",patient was irritable and loud Mental status exam: Patient was wearing his own cloth ,hygiene and grooming are poor ,unkept disheveled ,denies any hallucination,grandiose delusion ,hyperverbal ,increased productivity ,loose of association, alert to person and place ,denies any suicidal or homicidal ideation ,very concrete in his thinking insight and judgment are impaired ASSESSMENT :Bipolar disorder ,manic with psychotic features, polysubstance use disorder PLAN: Patient continues to meet criteria for inpatient psychiatric admission for symptom stabilization and safety ,increase Abilify oral to 30 mg and will transition to long acting injection .PRN Ativan and Geodon for agitation , ,encourage participation in group,SW on board for post-discharge plan
[2019-12-16] MEDS ORDERED: LORazepam 1 MG TAB PO PRN (10:26)
[2019-12-16] MEDS: HALOPERIDOL LACTATE 5 MG/ML 1 ML VIAL IM PRN ×2 (10:43→18:49)
[2019-12-17] MEDS: ARIPiprazole 15 MG TAB PO SCH (09:42)
--- NOTE | 2019-12-17 13:05 | P.PN ---
Progress Note - Text Progress Note Date: 12/17/19 I reviewed medical records ,did interview patient and case was discussed in treatment team DID REQUIRE 3 PRN OVER LAST 24 HOURS:Clementine Lucero and Ativan PROBATE HEARING FOR ONE HOUR: court ordered for [place] inpatient and outpatient in addition to psychotropic medications INTERVAL : patient was seen again after court hearing ,he stated that he will be cooperative and "I will not act out as a child",stated that he will compliant with our recommendation,he stated that he has anger issue especially when his of 33 years left last year "I got so angry and I broke most of window"patient seems unpredictable with poor impulse control Mental status exam: Patient was wearing his own cloth ,hygiene and grooming are poor ,unkept disheveled ,denies any hallucination,grandiose delusion ,hyperverbal ,increased productivity ,loose of association, alert to person and place ,denies any suicidal or homicidal ideation ,very concrete in his thinking insight and judgment are limited ASSESSMENT :Bipolar disorder ,manic with psychotic features, polysubstance use disorder PLAN: Patient continues to meet criteria for inpatient psychiatric admission for symptom stabilization and safety ,continue Abilify oral to 30 mg and will transition to long acting injection .PRN Ativan and Geodon for agitation , ,encourage participation in group,SW on board for post-discharge plan Will discontinue 1;1 security
[2019-12-17] MEDS: LORazepam 2 MG/ML INJ IM PRN (22:21)
[2019-12-17] MEDS: HALOPERIDOL LACTATE 5 MG/ML 1 ML VIAL IM PRN (22:56)
[2019-12-18] MEDS: ARIPiprazole 15 MG TAB PO SCH (09:06)
--- NOTE | 2019-12-18 10:12 | P.PN ---
Progress Note - Text Progress Note Date: 12/18/19 I reviewed medical records ,did interview patient and case was discussed in treatment team Had PRN Haldol 5 mg and 2 mg Ativan last night Slept 6-7 hours Today vitals:Temp:97.5,P;94,BP:102/70 Did not participate in groups INTERVAL : patient was seen in quiet room ,he was calm and cooperative,at times vague and guarded as he stated that he is depressed as his of 33 years left him and leaving with drug dealer ,he stated that he has anger due to end of his marriage ,denies any need for chemical dependency saying :I was using it with her but I do not have drug problem",limited insight to his addiction ,stated that he asked for PRN injection last night because "I was thinking about my who did testify in court against me",patient was laughing then started to sob saying "I have hard time to accept that she is not my and maybe now she is sleeping with someone else",patient is compliant with oral Abilify ,denies any side-effect Mental status exam: Patient was wearing his own cloth ,hygiene and grooming are poor ,unkept disheveled ,denies any hallucination,grandiose delusion ,hyperverbal ,increased productivity ,loose of association, alert to person and place ,denies any suicidal or homicidal ideation ,very concrete in his thinking insight and judgment are limited ASSESSMENT :Bipolar disorder ,manic with psychotic features, polysubstance use disorder PLAN: Patient continues to meet criteria for inpatient psychiatric admission for symptom stabilization and safety ,continue Abilify oral to 30 mg , Ativan and Geodon for agitation ,Haldol PRN , ,encourage participation in group,SW on board for post-discharge plan Will reconsult MD hoffman H and P
[2019-12-18] MEDS: HALOPERIDOL LACTATE 5 MG/ML 1 ML VIAL IM PRN (19:20)
[2019-12-18] MEDS: LORazepam 2 MG/ML INJ IM PRN (20:04)
--- NOTE | 2019-12-18 23:27 | P.MDCNMH ---
History of Present Illness H&P Date: 12/18/19 Chief Complaint: medical evaluation 54 year old male , denies any past medical history patient avoids eye contact, he marilyn any past medical histroy , denies any mental health problems from before. he reports that his of 33 year has petitioned him here, and has left him due to her using drugs. he admits to using meth with her at times in the past, but has poor insight regarding his own addiction and use. he currently denies any medical concerns , denies any fever, chills, chest pain ,trouble breathing , nasuea or vomiting. denies any headache, or focal neurodeficits. Review of Systems Pertinent positives and negatives as discussed in HPI, a complete review of systems was performed and all other systems are negative. Past Medical History Past Medical History: No Reported History History of Any Multi-Drug Resistant Organisms: None Reported Past Surgical History: No Surgical Hx Reported Additional Past Surgical History / Comment(s): 2011 colon resection surgery Past Psychological History: No Psychological Hx Reported Smoking Status: Current some day smoker Past Alcohol Use History: None Reported Past Drug Use History: None Reported - Past Family History family Family Medical History: No Reported History Medications and Allergies Home Medications Medication Instructions Recorded Confirmed Type No Known Home Medications 12/11/19 12/11/19 History Allergies Allergy/AdvReac Type Severity Reaction Status Date / Time Sulfa (Sulfonamide AdvReac Rash/Hives Verified 12/11/19 22:50 Antibiotics) Physical Exam Vitals: Vital Signs Temp Pulse BP Pulse Ox 12/18/19 06:31 97.5 F L 65 102/70 94 L General: non toxic, no distress, appears at stated age, normal weight, disheveled Derm: no unusual rashes/lesions no unusual ecchymoses, warm, dry Head: atraumatic, normocephalic, symmetric Eyes: EOMI, no lid lag, anicteric sclera, pupils equal round reactive to light ENT: Nose and ears atraumatic, no thrush, no pharyngeal erythema Neck: No thyromegaly, no cervical lymphadenopathy, trachea midline, supple Mouth: no lip lesion, mucus membranes moist Cardiovascular: S1S2 reg, no murmur, positive posterior tibial pulse bilateral, no edema, capillary refill immediate Lungs: CTA bilateral, no rhonchi, no rales , no accessory muscle use Abdominal: soft, nontender to palpation, no guarding, no appreciable organomegaly, normal bowel sounds Ext: no gross muscle atrophy, muscle strength 5 out of 5 in all 4 extremities grossly, no contractures, Neuro: CN II-XI grossly intact, light touch intact all 4 extremities, finger to nose within normal limits, Psych: Alert, oriented, flat affect Cranial Nerve Examination - Cranial Nerves Cranial Nerve II- Optic: Intact Cranial Nerve III- Oculomotor: Intact Cranial Nerve IV- Trochlear: Intact Cranial Nerve V- Trigeminal: Intact Cranial Nerve - Abducens: Intact Cranial Nerve VII- Facial: Intact Cranial Nerve VIII- Auditory: Intact Cranial Nerve IX- Glossopharyngeal: Intact Cranial Nerve X- Vagus: Intact Cranial Nerve XI- Accessory: Intact Cranial Nerve XII- Hypoglossal: Intact Assessment and Plan Assessment: depression management per psych polysubstance abuse counseled to quit drug of abuse. low risk for DVT, patient ambulatory Thank you for allowing us to participate in the care of this patient. We will follow peripherally. Do not hesitate to contact us with questions. Someone can be reached from the [facility] hospitalist group at all hours of the day at [phone].
[2019-12-19] MEDS: ARIPiprazole 15 MG TAB PO SCH (09:34)
--- NOTE | 2019-12-19 10:11 | P.PN ---
Progress Note - Text Progress Note Date: 12/19/19 I reviewed medical records ,did interview patient and case was discussed in treatment team Had PRN Haldol 5 mg and 2 mg Ativan last night Slept 6-7 hours Also did require PRN 2 mg Ativan yesterday around lunch time Did not participate in groups I reviewed medical consult INTERVAL : patient was seen in room ,he was calm and cooperative,stated that he could not sleep last night and he asked for PRN because "It is my son birthday and I want to go home",superficielly cooperative ,compliant with oral Abilify and denies any side effect ,no insight to his Meth and cocaine addiction "I do not need rehab I can stop it on my own" Mental status exam: Patient was wearing his own cloth ,hygiene and grooming are poor ,unkept disheveled ,,guarded ,evasive ,denies any hallucination,no delusional thinking ,speech is spontaneous ,coherent ,, alert to person and place ,denies any suicidal or homicidal ideation ,very concrete in his thinking insight and judgment are limited ASSESSMENT :Bipolar disorder ,manic with psychotic features, polysubstance use disorder PLAN: Patient continues to meet criteria for inpatient psychiatric admission for symptom stabilization and safety ,continue Abilify oral to 30 mg ,,order Abilify Maintain 400 mg IM today , Jenn and Clementine for agitation ,Haldol PRN , ,encourage participation in group,SW on board for post-discharge plan
[2019-12-19] MEDS ORDERED: ARIPiprazole IM SYRINGE 400 MG (NO CHARGE) PHARMACY STOCK IM ONE (12:00)
[2019-12-19 13:44] VITALS: BMI 25.0
[2019-12-19] MEDS: hydrOXYzine HCL 50 MG/ML 1 ML VIAL IM PRN (17:50)
[2019-12-19] MEDS ORDERED: traZODone HCL 100 MG TAB PO SCH (21:00)
[2019-12-20 00:42] VITALS: RESP 16
[2019-12-20] MEDS: ZIPRASIDONE 20 MG VIAL IM PRN (01:38)
[2019-12-20] MEDS: ARIPiprazole 15 MG TAB PO SCH (10:17)
[2019-12-20] MEDS: traZODone HCL 50 MG TAB PO SCH (20:48)
--- NOTE | 2019-12-20 22:12 | PN ---
PROGRESS NOTE DATE OF SERVICE: 12/20/2019 CHIEF COMPLAINT: The patient has significant substance abuse issues with poor compliance. He was brought to the ED on demand, initiated by [facility]. He had agitation. INTERVAL HISTORY: The patient has been doing fair. He had a generally quiet day yesterday. He attended some of the groups yesterday, at least stayed for a fair amount of time. He will come out in the day area. He will wander about. He interacts some with others. He reported poor sleep last night. Today he has been up. He has attended groups today and will stay at least for most of the group. He continues to make efforts to engage some with others. He talked about significant anxiety he has. He did not engage much in discussion related to substance use issues. Overall he feels that his mood is improving. Other than sleep he did not voice any specific complaints or concerns. He tolerates his psychotropic medications. MENTAL STATUS: Patient sat with some restlessness. He gave fair eye contact. He answered questions with brief responses./ At times he rambled some and was a little tangential. His affect was intense at times. His mood dysphoric. He seemed moderately distressed. It was difficult to assess for thought disorder. He voiced no thoughts of harm. Cognition was clear. ASSESSMENT: I will continue the current diagnosis and treatment plan. We will continue to make efforts to engage the patient in individual and group therapeutic activities. I will increase trazodone to 150 mg at bedtime. I reviewed medication issues with the patient including that since he has just received the Abilify Maintena it may be some days for him to begin to see improvement in that regards. I reviewed his medications in terms of the indication, potential side effects, metabolic concerns and movement disorder issues. It is not clear if the patient was able to pay too much attention of the conversation so I kept it limited. We will focus on stabilization and discharge planning. MMMARGIE / LUKEN: [id number] /
[2019-12-21] MEDS: hydrOXYzine HCL 50 MG/ML 1 ML VIAL IM PRN (02:56)
[2019-12-21] MEDS: ARIPiprazole 15 MG TAB PO SCH (07:42)
--- NOTE | 2019-12-21 16:45 | PN ---
PROGRESS NOTE DATE OF SERVICE: 12/21/2019. CHIEF COMPLAINT: The patient has significant substance abuse issues with poor compliance. He was brought to the ED on demand initiated by [facility]. He had agitation. INTERVAL HISTORY: Patient has been doing fairly well. He had a quiet day yesterday. He has been attending groups. He presents himself as appropriate in groups. He comes out in the day area. He does interact some with others. He acknowledged that there were some significant behavioral issues that led to his coming into the hospital, though it was noteworthy that he did not give much credence to the behavior he had as far as raising red flags to others. He slept fair last night. He said he slept about 4 or 5 hours. The main issue with sleep is just environment according to the patient. Today, he has been up. He continues to go to groups. He has been cooperative with care. When I talked to him about some of the admission circumstances, he noted that he had gotten into an argument of some sort with his and ended up throwing various knick knacks through the window. He did not seem to have much insight into the idea that throwing things through windows would certainly catch people's attention and be considered a high risk situation. He also tended to downplay the idea of the struggle he got into with police. On the other hand, he does understand that with the court order, there is the expectation of his getting followup. He says a big problem he is facing is trouble he is having with his car and whether he will have transportation to get to appointments. He apparently has received a long-acting injectable Abilify which to some extent will help with medication compliance. He tolerates his psychotropic medications. MENTAL STATUS: Patient sat with a little restlessness. He gave good eye contact. He answered questions with direct responses. At times, he tended to make tangential comments. His affect was somewhat constricted. He had a sense of almost being emotionally disconnected from the issues at hand. He tended to minimize most of the problems he may have been facing. His mood was somewhat reserved though not clearly down or depressed. He did not appear to be significantly distressed. There was no indication of thought disorder. He voiced no thoughts of harm. Cognition was clear. ASSESSMENT: I will continue the current diagnosis and treatment plan. I will continue psychotropic medications the same. I had an extensive discussion with the patient regarding the seriousness of the events that led to his coming into the hospital and that it would be critical for him to look at addressing these behaviors as far as what he anticipates in his future. I would encourage a family meeting to be set up with the patient and his as part of discharge planning. We will focus on stabilization and discharge planning. KIANNA / QUIRINO: [id number] /
[2019-12-21] MEDS: traZODone HCL 50 MG TAB PO SCH (20:45)
[2019-12-22 03:37] VITALS: BP 128/61; PULSE 74; TEMP 97.8
--- NOTE | 2019-12-22 09:58 | P.PN ---
Progress Note - Text Progress Note Date: 12/22/19 I reviewed medical records ,did interview patient and case was discussed in treatment team Last PRN IM Geodon was 12/19 Had PRN Vistaril for restless feeling Slept 4 hours with 150 mg Trazodone Did participate in groups TODAY VITALS:Temp:97,8,P:74,P:98,BP:128/61 INTERVAL : patient came to office asking to talk to me ,he stated that he is ready to be discharged and will follow up with [facility] ,he stated that he does not have transportation and he did not have any food at home but "My son took care of this and he filled my pantry",patient was restless ,reports that he is not sleeping at night because"They do check on us every fifteen minutes",patient verbalized understanding to effect of Meth on his mental health but refused referral to chemical dependency, reports high anxiety because"I want to go home today" Mental status exam: Patient was wearing his own cloth ,hygiene and grooming are fair ,denies any hallucination,no delusional thinking ,speech is spontaneous ,coherent ,, alert to person and place ,denies any suicidal or homicidal ideation ,very concrete in his thinking insight and judgment are improving ASSESSMENT :Bipolar disorder ,manic with psychotic features, polysubstance use disorder PLAN: Patient continues to meet criteria for inpatient psychiatric admission f or symptom stabilization and safety ,continue Abilify oral to 30 mg , Abilify Maintain 400 mg IM on 12/18 , ,d/c Trazodone, Vistaril 100 mg HS,prn Geodon for agitation , , ,encourage participation in group,SW on board for post- discharge plan
[2019-12-22] MEDS: ARIPiprazole 15 MG TAB PO SCH (10:11)
[2019-12-22] MEDS ORDERED: hydrOXYzine pamoate 25 MG CAP PO SCH (21:00)
[2019-12-23] MEDS: ARIPiprazole 15 MG TAB PO SCH (08:11)
--- NOTE | 2019-12-23 11:46 | DS ---
DISCHARGE SUMMARY DATE OF ADMISSION: 12/11/2019. DATE OF DISCHARGE: 12/23/2019 CARE PROCESS MANAGER: Dr. Terrence Casillas for H and P and medical management. DISCHARGE DIAGNOSES: 1. Bipolar disorder, manic with psychotic features, in partial remission. 2. Polysubstance use disorder, methamphetamine and cocaine. 3. Antisocial personality disorder. HISTORY OF PRESENT ILLNESS: Patient is a 54-year-old, male who was recently discharged from [facility] on November 21, 2019. Patient did have defer treatment plan and he did suppose to follow up with substance abuse rehab as he did have an appointment at [facility] on November 25, 2019. Patient did not follow up with our recommendation and he came back on petition filed by [facility] due to his poor compliance. Initially when he came, he was uncooperative with the evaluation. He was very resistant, threatening to hurt nursing staff and even to hurt me. Patient even he did hit his head against the cage in the police car. He was very agitated in the ER and he did need restrain and injection. He refused to have his blood workup or even to have a urine drug screen. For complete psychiatric history, please refer to my initial evaluation and even Dr. Landaverde's history and physical. HOSPITAL COURSE: Initially, patient was severely agitated, aggressive and violent and he did require security on one-to-one until the probate hearing. Even on December 13, patient did need restrain and he was in quiet room for 4 or 5 days. On December 13, patient did collective metal from the roof and he started cutting his mattress and pillow and even he did start threatening staff and other patient and he did require restraints and IM Ativan and Geodon. Patient was refusing to be cooperative and insisting that he will be discharged after the probate court, as we did ask for demanding hearing for treatment. Patient did require at least between 2-3 injections a day and in addition, I did add Haldol p.r.n. IM for agitation and violent behavior. The patient was in the quiet room until December 16. On December 16, we did have probate hearing and his testified that the patient has been violent and delusional. Patient was trying to tell the administrative judge that he need to be discharged as soon as possible; however, the administrative judge did agree that patient needs a combination of inpatient and outpatient treatment and also if he does require IM long-acting, he has to be compliant. After the probate hearing, I did discontinue security one-to-one and patient was not violent after the court after he did find out that he has to stay according to our recommendation. Patient did agree as court ordered to take Abilify 30 mg daily in addition to he took Abilify injection on December 18, 400 mg IM. He was always complaining of trouble sleeping at night and he was asking for IM Ativan, so I discontinued the Ativan and I did give him Vistaril 100 mg at bedtime for sleep. Till probate court, patient was not taking care of his basic hygiene, not showering, just lying in the quiet room. After this, he did agree to see the medical doctor and he did agree to take care of his hygiene and participate in group therapy. I did discuss more than one time his addiction cocaine and methamphetamine, but patient stated that he can get clean and he just needs outpatient treatment for dual diagnosis. He declined more than once to be referred to substance chemical and chemical residential treatment. We did contact the patient's son, who stated that there is no weapon at home and he did agree to belt picker the patient and he stated that the patient is from his . Even the who has been from him, she came on the weekend with his son to visit and she stated she does not feel that the her estranged is ready to be discharged and it seems to me that even she said this, she did not want the community mental health social worker to tell him that she did contact us. river transportation worker did inform the that she does not have consent to contact her. She has consent only to contact his son. At the time of the discharge, patient was cooperative, more organized. Denied any suicidal or homicidal ideation. No violent behavior, very appropriate and easy to redirect. He stated that he needs to work on accepting to let go of the marriage as his has been using methamphetamine and he needs to stay clean. After December 16, patient did show much improvement in his behavior, in his attitude and he was very social with other patient. The patient did agree to pursue dual diagnosis at [facility]. MENTAL STATUS EXAMINATION: Patient is dressed with his own clothes. His hygiene and grooming are much better than before. He was cooperative, not agitated, very easy to redirect. Speech is coherent and goal directed. He denied any hallucination or delusional thinking. He denied any suicidal or homicidal ideation. His insight and judgment are improving. DISCHARGE DIAGNOSES: 1. Bipolar disorder, manic with psychotic features, in partial remission. 2. Polysubstance use disorder cocaine and methamphetamine. PLAN: 1. The patient will be discharged to follow up with [facility] at [facility]. 2. The patient was given 10 day supply of Abilify 30 mg and he is due for injection Abilify 400 mg IM on January 16, 2020. 3. Patient was given one month supply of Vistaril 30 mg for sleep. 4. Patient is not imminent to hurt himself or any other. Patient does not have access to any weapons. Patient was counseled about the effect of illicit drug use on his mental and physical health and he did verbalize understanding. Patient has to abstain completely from any illicit drug use. 5. Patient was counseled about the compliance with treatment and medication as he is still on court order for treatment. Patient was instructed to come to the hospital if any symptom recur. MMODL / IJN: [id number] /
== END 2019-12-23 12:27 | disposition home or self-care (01) | DRG 885 ==
LOC: EC 21:56 → 3MHU 12-12 07:23
PROVIDERS: ADMIT Psychiatry & Neurology Psychiatry; ATTEND Psychiatry & Neurology Psychiatry
DX: F31.2 Bipolar disorder, current episode manic severe with psychotic features (principal); F15.159 Other stimulant abuse with stimulant-induced psychotic disorder, unspecified; F17.210 Nicotine dependence, cigarettes, uncomplicated; F41.9 Anxiety disorder, unspecified; F60.2 Antisocial personality disorder; S01.81XA Laceration without foreign body of other part of head, initial encounter; X79.XXXA Intentional self-harm by blunt object, initial encounter; Y92.89 Other specified places as the place of occurrence of the external cause; Z78.1 Physical restraint status; Z91.19 Patient's noncompliance with other medical treatment and regimen; R45.1 Restlessness and agitation; Z63.8 Other specified problems related to primary support group; Z81.3 Family history of other psychoactive substance abuse and dependence; Z90.49 Acquired absence of other specified parts of digestive tract; F19.10 Other psychoactive substance abuse, uncomplicated
CPT/HCPCS: 12011; 82075; 96372; 99285

== ENCOUNTER 2020-11-27 19:53 | Inpatient (IN) | payer MEDICAID, OTHER ==
[2020-11-27] MEDS ORDERED: DIPH,PERTUS(ACELL)TETVAC-LF 0.5 ML VIAL IM ONE (20:12)
[2020-11-27] MEDS ORDERED: ZIPRASIDONE 20 MG VIAL IM STA (20:17)
--- NOTE | 2020-11-27 20:24 | ED ---
Psych HPI - General Source: patient, police, EMS, RN notes reviewed Mode of arrival: EMS Limitations: altered mental status - History of Present Illness MD Complaint: altered mental status, other (Delusions and paranoia) -: unknown Associated Psychiatric Symptoms: delusions (States the drones are tracking him and coming to get him) Quality: constant Associated Symptoms: denies other symptoms Treatments Prior to Arrival: none <Sukhdev Plaza - Last Filed: 11/28/20 00:31> <Silver Rodgers - Last Filed: 11/28/20 03:27> - General Chief Complaint: Psychiatric Symptoms Stated Complaint: Mental Health Time Seen by Provider: 11/27/20 20:05 - History of Present Illness Initial Comments: 55-year-old white male, brought in by the police department for paranoia, and delusions of drones tracking him and coming to get him. Patient curled up in a right-sided position on stretcher stating that we "can't hide from the drones they're coming". Per PD patient was found naked running through a cornfield. Police had gotten a call earlier that he had stolen truck and then abandoned that vehicle and then stole a [employer] He was then found by a preacher who took him to [place] [employer] and the patient escaped from the police department and was found running naked through a cornfield a mile away. Patient is covered in abrasions and scratches from head to toe. He is alert to person and place but he thinks the year is 2020. He is moving all extremities but keeps complaining that we need to close the door because the drones will find him. (Sukhdev Plaza) - Related Data Allergies Allergy/AdvReac Type Severity Reaction Status Date / Time Sulfa (Sulfonamide AdvReac Rash/Hives Verified 12/11/19 22:50 Antibiotics) Review of Systems ROS Other: All systems not noted in ROS Statement are negative. <Sukhdev Plaza - Last Filed: 11/28/20 00:31> ROS Other: All systems not noted in ROS Statement are negative. <Silver Rodgers - Last Filed: 11/28/20 03:27> ROS Statement: Those systems with pertinent positive or pertinent negative responses have been documented in the HPI. Past Medical History Past Medical History: No Reported History History of Any Multi-Drug Resistant Organisms: None Reported Past Surgical History: No Surgical Hx Reported Additional Past Surgical History / Comment(s): 2012 colon resection surgery Past Psychological History: No Psychological Hx Reported Smoking Status: Current some day smoker Past Alcohol Use History: None Reported Past Drug Use History: None Reported - Past Family History family Family Medical History: No Reported History <Sukhdev Plaza - Last Filed: 11/28/20 00:31> General Exam Limitations: altered mental status General appearance: alert, other (delusions) Head exam: Present: atraumatic, normocephalic, other (Multiple facial abrasions) Expanded Head exam: Present: abrasion. Absent: general tenderness Eye exam: Present: normal appearance, PERRL, EOMI. Absent: scleral icterus, conjunctival injection, nystagmus, periorbital swelling Pupils: Present: normal accommodation ENT exam: Present: mucous membranes dry, other (Poor dentition) Neck exam: Present: normal inspection, full ROM. Absent: tenderness, meningismus, lymphadenopathy Respiratory exam: Present: normal lung sounds bilaterally. Absent: respiratory distress, wheezes, rales, rhonchi, stridor, accessory muscle use, decreased breath sounds Cardiovascular Exam: Present: regular rate, normal rhythm, normal heart sounds. Absent: systolic murmur, diastolic murmur, rubs, gallop, clicks GI/Abdominal exam: Present: soft, normal bowel sounds. Absent: distended, tenderness, guarding, rebound, rigid Extremities exam: Present: full ROM, normal capillary refill, other (Multiple abrasions to bilateral lower extremities arms, back chest and face). Absent: tenderness, pedal edema, joint swelling, calf tenderness Back exam: Present: full ROM, other (Multiple abrasions). Absent: tenderness, CVA tenderness (R), CVA tenderness (L) Neurological exam: Present: alert (Person and place he believes the year is 2019) Expanded Patient oriented to: Present: person, place Speech: Present: fluid speech Cranial nerves: EOM's Intact: Normal Eye Response: (4) open spontaneously Motor Response: (6) obeys commands Verbal Response: (4) confused conversation Lucas Total: 14 Psychiatric exam: Present: anxious, other (Paranoia and psychosis delusional) Skin exam: Present: warm, dry, normal color, abrasion (Multiple abrasions from head to toe). Absent: cyanosis, diaphoretic, erythema <Fletcher Plazai - Last Filed: 11/28/20 00:31> Limitations: altered mental status General appearance: alert, in no apparent distress, anxious Head exam: Present: atraumatic, normocephalic, normal inspection Eye exam: Present: normal appearance, PERRL, EOMI. Absent: scleral icterus, conjunctival injection, periorbital swelling ENT exam: Present: normal exam, mucous membranes moist Neck exam: Present: normal inspection. Absent: tenderness, meningismus, lymphadenopathy Respiratory exam: Present: normal lung sounds bilaterally. Absent: respiratory distress, wheezes, rales, rhonchi, stridor Cardiovascular Exam: Present: regular rate, normal rhythm, normal heart sounds. Absent: systolic murmur, diastolic murmur, rubs, gallop, clicks GI/Abdominal exam: Present: soft, normal bowel sounds. Absent: distended, tenderness, guarding, rebound, rigid Extremities exam: Present: normal inspection, full ROM, normal capillary refill. Absent: tenderness, pedal edema, joint swelling, calf tenderness Back exam: Present: normal inspection Neurological exam: Present: alert, oriented X3, CN II-XII intact Psychiatric exam: Present: normal affect, normal mood Skin exam: Present: warm, dry, intact, normal color. Absent: rash <Silver Rodgers - Last Filed: 11/28/20 03:27> Course <Silver Rodgers - Last Filed: 11/28/20 03:27> Vital Signs 11/27/20 11/27/20 11/27/20 19:54 20:14 20:42 Temperature 98.0 F Pulse Rate 86 Respiratory 18 Rate Blood Pressure 80/63 94/61 127/77 O2 Sat by Pulse 100 Oximetry 11/27/20 22:00 Temperature Pulse Rate 86 Respiratory 18 Rate Blood Pressure 99/65 O2 Sat by Pulse 97 Oximetry - Reevaluation(s) Reevaluation #1: 11/28/20 03:27 Medical record is reviewed (Silver Rodgers) Reevaluation #2: 11/28/20 03:27 Medical clear for psychiatric evaluation (Silver Rodgers) Medical Decision Making - Lab Data Result diagrams: 11/27/20 21:04 11/27/20 21:04 <Sukhdev Plaza - Last Filed: 11/28/20 00:31> - Lab Data Result diagrams: 11/27/20 21:04 11/27/20 21:04 <Silver Rodgers - Last Filed: 11/28/20 03:27> - Medical Decision Making According to previous hospitalization records patient has a history of bipolar with manic episodes and psychosis, polysubstance abuse with meth and cocaine and antisocial personality disorder. He has been [facility]. Patient's WBC count is 20.4 with a neutrophil count of 18.4, his glucose is 71 and his alcohol level is less than 10. Case was discussed with Dr. Rodgers and patient was given a gram of Rocephin and admitted to the [facility] with Leukocytosis and psychosis. UA is pending at this time. (Sukhdev Plaza) 55 male seen in [facility]ry, patient deemed necessary for inpatient psychiatric evaluation and treatment (Silver Rodgers) - Lab Data Lab Results 11/27/20 11/27/20 11/27/20 Range/Units 21:04 21:04 22:50 WBC 20.4 H (3.8-10.6) k/uL RBC 5.25 (4.30-5.90) m/uL Hgb 16.6 (13.0-17.5) gm/dL Hct 47.4 (39.0-53.0) % MCV 90.3 (80.0-100.0) fL MCH 31.5 (25.0-35.0) pg MCHC 34.9 (31.0-37.0) g/dL RDW 13.2 (11.5-15.5) % Plt Count 217 (150-450) k/uL MPV 9.3 Neutrophils % 90 % Lymphocytes % 4 % Monocytes % 5 % Eosinophils % 1 % Basophils % 0 % Neutrophils # 18.4 H (1.3-7.7) k/uL Lymphocytes # 0.8 L (1.0-4.8) k/uL Monocytes # 1.0 (0-1.0) k/uL Eosinophils # 0.1 (0-0.7) k/uL Basophils # 0.0 (0-0.2) k/uL Sodium 136 L (137-145) mmol/L Potassium 4.2 (3.5-5.1) mmol/L Chloride 101 (98-107) mmol/L Carbon Dioxide 18 L (22-30) mmol/L Anion Gap 17 mmol/L BUN 21 H (9-20) mg/dL Creatinine 1.02 (0.66-1.25) mg/dL Est GFR (CKD-EPI)AfAm >90 (>60 ml/min/1.73 sqM) Est GFR (CKD-EPI)NonAf 83 (>60 ml/min/1.73 sqM) Glucose 67 L (74-99) mg/dL POC Glucose (mg/dL) 71 L (75-99) mg/dL POC Glu Senior Quantity Surveyor ID Marcelino Gleason Calcium 9.8 (8.4-10.2) mg/dL Serum Alcohol <10 mg/dL Coronavirus (PCR) (Not Detectd) 11/28/20 Range/Units 02:33 WBC (3.8-10.6) k/uL RBC (4.30-5.90) m/uL Hgb (13.0-17.5) gm/dL Hct (39.0-53.0) % MCV (80.0-100.0) fL MCH (25.0-35.0) pg MCHC (31.0-37.0) g/dL RDW (11.5-15.5) % Plt Count (150-450) k/uL MPV Neutrophils % % Lymphocytes % % Monocytes % % Eosinophils % % Basophils % % Neutrophils # (1.3-7.7) k/uL Lymphocytes # (1.0-4.8) k/uL Monocytes # (0-1.0) k/uL Eosinophils # (0-0.7) k/uL Basophils # (0-0.2) k/uL Sodium (137-145) mmol/L Potassium (3.5-5.1) mmol/L Chloride (98-107) mmol/L Carbon Dioxide (22-30) mmol/L Anion Gap mmol/L BUN (9-20) mg/dL Creatinine (0.66-1.25) mg/dL Est GFR (CKD-EPI)AfAm (>60 ml/min/1.73 sqM) Est GFR (CKD-EPI)NonAf (>60 ml/min/1.73 sqM) Glucose (74-99) mg/dL POC Glucose (mg/dL) (75-99) mg/dL POC Glu Senior Quantity Surveyor ID Calcium (8.4-10.2) mg/dL Serum Alcohol mg/dL Coronavirus (PCR) Not Detected (Not Detectd) Disposition Decision Date: 11/28/20 Decision Time: 00:33 <Sukhdev Plaza - Last Filed: 11/28/20 00:31> Is patient prescribed a controlled substance at d/c from ED?: No <Silver Rodgers - Last Filed: 11/28/20 03:27> Clinical Impression: Leukocytosis, Psychosis, Suicidal ideation Disposition: TRANSFER TO PSYCH HOSP/UNIT Condition: Fair Referrals: None,Stated [Primary Care Provider] - 1-2 days
[2020-11-27 21:25] LABS: Basophils % (A) 0 %; Eosinophils # (A) 0.1 k/uL (0-0.7); Eosinophils % (A) 1 %; HCT 47.4 % (39.0-53.0); HGB 16.6 gm/dL (13.0-17.5); Lymphocytes # (A) 0.8 k/uL (1.0-4.8); Lymphocytes % (A) 4 %; MCH 31.5 pg (25.0-35.0); MCHC 34.9 g/dL (31.0-37.0); MCV 90.3 fL (80.0-100.0); Mean Platelet Volume 9.3; Monocytes % (A) 5 %; Neutrophils # (A) 18.4 k/uL (1.3-7.7); Neutrophils % (A) 90 %; Platelet Count 217 k/uL (150-450); RBC 5.25 m/uL (4.30-5.90); RDW 13.2 % (11.5-15.5); WBC 20.4 k/uL (3.8-10.6)
[2020-11-27 21:33] LABS: African American GFR (CKD) >90 (>60 ml/min/1.73 sqM); Alcohol <10 mg/dL; Anion Gap 17 mmol/L; Blood Urea Nitrogen 21 mg/dL (9-20); Calcium 9.8 mg/dL (8.4-10.2); Carbon Dioxide 18 mmol/L (22-30); Chloride 101 mmol/L (98-107); Glucose 67 mg/dL (74-99); Non-African American GFR(CKD) 83 (>60 ml/min/1.73 sqM); Potassium 4.2 mmol/L (3.5-5.1); Sodium 136 mmol/L (137-145)
[2020-11-27 22:51] LABS: Glucose,Whole Blood 71 mg/dL (75-99)
[2020-11-27] MEDS ORDERED: SODIUM CHLORIDE 0.9% 1,000 ML IV ONE (22:54)
--- NOTE | 2020-11-27 23:21 | XR ---
EXAMINATION TYPE: XR chest 1V portable DATE OF EXAM: 11/27/2020 COMPARISON: 08/30/2011 HISTORY: Altered mental status. TECHNIQUE: Single view FINDINGS: There is some coarsening of the interstitial markings at the lung bases. There is no heart failure. Heart size is normal. Thoracic aorta is atheromatous. IMPRESSION: Mild interstitial density at the lung bases is increased on the right side compared to ol d exam. No pulmonary consolidation. No heart failure.
[2020-11-28] MEDS ORDERED: cefTRIAXone IN SWFI 1,000 MG/10 ML SYRINGE IVP STA (00:30)
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
[2020-11-28 03:19] LABS: Appearance,Urine Clear (Clear); Bilirubin,Urine Negative (Negative); Blood,Urine Negative (Negative); Color,Urine Yellow; Glucose,Urine (UA) Negative (Negative); Ketones,Urine 4+ (Negative); Leukocyte Esterase,Urine Negative (Negative); Nitrite,Urine Negative (Negative); Protein,Urine Trace (Negative); Specific Gravity,Urine 1.018 (1.001-1.035); Urobilinogen,Urine <2.0 mg/dL (<2.0)
[2020-11-28 03:29] LABS: Amphetamine Screen,Urine Detected (NotDetected); Barbiturate Screen,Urine Not Detected (NotDetected); Benzodiazepines Screen,Urine Not Detected (NotDetected); Cocaine Screen,Urine Not Detected (NotDetected); Methadone Screen, Urine Not Detected (NotDetected); Opiate Screen,Urine Not Detected (NotDetected); Oxycodone Screen, Urine Not Detected (NotDetected); Phencyclidine Screen,Urine Not Detected (NotDetected); Tricyclic Antidepressant,Urine Not Detected (NotDetected); Urn Cannabinoid Scrn Detected (NotDetected)
[2020-11-28] MEDS ORDERED: ACETAMINOPHEN TAB 325 MG TAB PO PRN (03:59)
[2020-11-28] MEDS ORDERED: MAGNESIUM HYDROXIDE 2,400 MG/10 ML CUP PO PRN (03:59)
[2020-11-28] MEDS ORDERED: MAG HYDROX/AL HYDROX/SIMETH 30 ML CUP PO PRN (03:59)
[2020-11-28] MEDS ORDERED: haloperidoL 5 MG TAB PO PRN (04:02)
[2020-11-28] MEDS ORDERED: HALOPERIDOL LACTATE 5 MG/ML 1 ML VIAL IM PRN (04:02)
[2020-11-28] MEDS ORDERED: LORazepam 2 MG/ML INJ IM PRN (04:02)
[2020-11-28 11:38] LABS: Basophils % (A) 0 %; Eosinophils # (A) 0.3 k/uL (0-0.7); Eosinophils % (A) 2 %; HGB 15.4 gm/dL (13.0-17.5); Lymphocytes # (A) 1.4 k/uL (1.0-4.8); Lymphocytes % (A) 12 %; MCHC 34.2 g/dL (31.0-37.0); MCV 90.7 fL (80.0-100.0); Mean Platelet Volume 8.8; Monocytes # (A) 0.8 k/uL (0-1.0); Monocytes % (A) 7 %; Neutrophils # (A) 8.7 k/uL (1.3-7.7); Neutrophils % (A) 77 %; Platelet Count 202 k/uL (150-450); RBC 4.96 m/uL (4.30-5.90); RDW 13.2 % (11.5-15.5); WBC 11.3 k/uL (3.8-10.6)
[2020-11-28] MEDS ORDERED: HALOPERIDOL LACTATE 5 MG/ML 1 ML VIAL IM ONE (11:45)
[2020-11-28 11:52] LABS: ALT 30 U/L (4-49); AST 83 U/L (17-59); African American GFR (CKD) >90 (>60 ml/min/1.73 sqM); Albumin 3.9 g/dL (3.5-5.0); Alkaline Phosphatase 78 U/L (38-126); Anion Gap 12 mmol/L; Blood Urea Nitrogen 23 mg/dL (9-20); Carbon Dioxide 18 mmol/L (22-30); Chloride 106 mmol/L (98-107); Glucose 88 mg/dL (74-99); Non-African American GFR(CKD) >90 (>60 ml/min/1.73 sqM); Sodium 136 mmol/L (137-145); Total Bilirubin 1.1 mg/dL (0.2-1.3); Total Protein 6.5 g/dL (6.3-8.2)
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
[2020-11-28 22:04] LABS: Hemoglobin A1C 5.4 % (4.0-6.0)
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
[2020-11-29] MEDS ORDERED: diphenhydrAMINE 25 MG CAP PO PRN (14:29)
[2020-11-29] MEDS: PALIPERIDONE 3 MG TAB.ER.24 PO SCH (20:48)
--- NOTE | 2020-11-29 21:12 | P.PN ---
Progress Note - Text Progress Note Date: 11/29/20 suspected type 4 hypersensitivity reaction to poison Sarah, with reaction over the left forearm over the ventral area, with erythematus pruritic raised lesions and papules, no blisters steroids are recommended , but due to concerns of worsening acute psychosis with PO systemic steroids at high dose. I suggest we start with potent topical steroid, like betamethason BID and follow up accordingly , if becomes more wide spread, then will have to use PO prednison at 60 mg daily for 1 week then taper
[2020-11-29] MEDS: BETAMETHASONE DIPROPIONATE 0.05% CREAM 15 GM TUBE TOPICAL SCH (21:33)
[2020-11-29] MEDS: LORazepam 1 MG TAB PO PRN (21:36)
[2020-11-30] MEDS: BETAMETHASONE DIPROPIONATE 0.05% CREAM 15 GM TUBE TOPICAL SCH ×2 (08:04→19:42)
[2020-11-30] MEDS ORDERED: diphenhydrAMINE 25 MG CAP PO SCH (09:00)
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
[2020-11-30] MEDS: diphenhydrAMINE 25 MG CAP PO PRN ×2 (18:38→19:42)
[2020-11-30] MEDS: PALIPERIDONE 3 MG TAB.ER.24 PO SCH (19:42)
[2020-11-30] MEDS: LORazepam 1 MG TAB PO PRN (21:06)
[2020-12-01 07:12] VITALS: BP 129/75; PULSE 87; RESP 16; TEMP 98.3
[2020-12-01] MEDS: BETAMETHASONE DIPROPIONATE 0.05% CREAM 15 GM TUBE TOPICAL SCH (08:55)
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
== END 2020-12-01 14:53 | disposition home or self-care (01) | DRG 897 ==
LOC: EC 19:53 → 3MHU 11-28 03:53
PROVIDERS: ADMIT Psychiatry & Neurology Psychiatry; ATTEND Psychiatry & Neurology Psychiatry
PROC: 3E0234Z Introduction of Serum, Toxoid and Vaccine into Muscle, Percutaneous Approach (ICD-10-PCS; principal; 2020-11-27)
DX: F15.159 Other stimulant abuse with stimulant-induced psychotic disorder, unspecified (principal); R45.851 Suicidal ideations; F14.11 Cocaine abuse, in remission; S40.811A Abrasion of right upper arm, initial encounter; D72.829 Elevated white blood cell count, unspecified; F12.10 Cannabis abuse, uncomplicated; F60.2 Antisocial personality disorder; Z23 Encounter for immunization; Z20.822 Contact with and (suspected) exposure to COVID-19; S00.81XA Abrasion of other part of head, initial encounter; S80.812A Abrasion, left lower leg, initial encounter; S80.811A Abrasion, right lower leg, initial encounter; S40.812A Abrasion of left upper arm, initial encounter; S20.319A Abrasion of unspecified front wall of thorax, initial encounter; F41.9 Anxiety disorder, unspecified; Z87.891 Personal history of nicotine dependence; Z90.49 Acquired absence of other specified parts of digestive tract; Z87.19 Personal history of other diseases of the digestive system; Z60.2 Problems related to living alone; Z98.890 Other specified postprocedural states; Z88.2 Allergy status to sulfonamides
CPT/HCPCS: 36415; 71045; 80048; 80053; 80306; 80320; 81003; 82075; 83036; 84443; 85025; 87635; 90471; 90715; 96372; 99285